=== PATIENT | female | born 1995 | race Caucasian/White ===

== ENCOUNTER 2021-04-15 16:53 | Emergency (ER) | payer OTHER, SELFPAY ==
[2021-04-15 17:12] VITALS: BP 132/92; PULSE 84; RESP 20; TEMP 36.3; O2SAT 98
--- NOTE | 2021-04-15 17:23 | ED.ANIMALBIT ---
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 Multiple small scratches and abrasions arms are currently being soaked MD complaint: animal bite Onset (ago): hour(s) Animal: cat Mechanism: bite Location - Extremities: Right: hand Related Data Home Medications Medication Instructions Recorded Confirmed Lo Loestrin Fe 04/15/21 Viibryd 04/15/21 Allergies Allergy/AdvReac Type Severity Reaction Status Date / Time azithromycin Allergy Hives Verified 04/15/21 17:17 Sulfa (Sulfonamide Allergy Hives Verified 04/15/21 17:17 Antibiotics) vancomycin Allergy Hives Verified 04/15/21 17:17 Review of Systems Review of Systems: CONSTITUTIONAL: Denies fever, chills, sweats. EYES: Denies visual changes, redness, discharge. ENT: Denies rhinorrhea, congestion, sore throat, otalgia. CARDIOVASCULAR: Denies chest pain, palpitations, edema. RESPIRATORY: Denies dyspnea, wheezing, cough GASTROINTESTINAL: Denies abdominal pain, nausea, vomiting, diarrhea. GENITOURINARY: Denies dysuria, hematuria, abnormal discharge SKIN: Denies rash or itching. NEUROLOGIC: Denies numbness, or focal weakness. PSYCHIATRIC: Denies anxiety or depression. Cat bite and primarily right hand and a couple scratches on left-patient works as a groomer in a pet salon PMF Past Medical History Medical History Anxiety Bipolar 1 disorder Family History Family History (Updated 04/15/21 @ 17:34 by Inga Graves CNP) Other Diabetes mellitus High cholesterol Hypertension Social History Social History (Updated 04/15/21 @ 17:34 by Inga Graves CNP) Smoking status: Never smoker Alcohol intake: current Comments At time of signature, I agree with nursing past medical, surgical, social and family history. There is no relevant family history pertinent to the presenting complaint. Exam Narrative: GENERAL: This is a well-nourished, well-developed patient, in mild distress. HEAD: normocephalic, atraumatic. EYES: Sclera clear/white. Vision is grossly intact. EARS: External ears normal, Hearing grossly intact. NOSE: External nose normal without nasal discharge, nares without redness, no rhinorrhea. THROAT: Mucous membranes moist, NECK: Neck supple, CARDIOVASCULAR: Regular rate and rhythm without murmurs, gallops, or rubs. RESPIRATORY: Clear to auscultation. Breath sounds equal bilaterally. No wheezes, rales, or rhonchi. GASTROINTESTINAL: Abdomen soft, SKIN: warm, intact with no suspicious lesions or rash, good texture and turgor.multiple small scratches and light bites from cat all over R hand/forearm, 1 about ,5cm, other ,25) NEURO: awake, alert, and oriented to person, place and time. There were no obvious focal neurologic abnormalities. Steady gait EXTREMITIES: Normal range of motion. BACK: Nontender without deformity Course Course Emergency Course: Patient here after getting cat Bite at pet [employer] where she works Had tetanus vaccine Hands cleaned and soaked, Steri-Strips applied to small scratch in the forefinger and thumb(.5 cm. less than .5 cm)-and wrapped with gauze roll- discussed care of skin/lacerations and started on Augmentin Vital Signs Vital signs: Vital Signs Temperature 97.3 F L 04/15/21 17:12 Pulse Rate 84 04/15/21 17:12 Respiratory Rate 20 04/15/21 17:12 Blood Pressure 132/92 H 04/15/21 17:12 Pulse Oximetry 98 04/15/21 17:12 Temperature 97.3 F L 04/15/21 17:12 Pulse Rate 84 04/15/21 17:12 Respiratory Rate 20 04/15/21 1
[2021-04-15] MEDS: TETANUS,DIPHTHERIA,AC PERTUSSIS ADULT (0.5 ML) BOOSTRIX IM (17:31)
== END 2021-04-15 18:03 | disposition home or self-care (01) ==
PROVIDERS: Emergency Provider Nurse Practitioner
DX: S61.451A Open bite of right hand, initial encounter (principal); S51.851A Open bite of right forearm, initial encounter; W55.01XA Bitten by cat, initial encounter; Z23 Encounter for immunization; F31.9 Bipolar disorder, unspecified
CPT/HCPCS: 90471; 90715; 99203; G0463

== ENCOUNTER 2024-03-27 11:29 | Emergency (ER) | payer OTHER, SELFPAY ==
--- NOTE | 2024-03-27 11:32 | ED.ANIMALBIT ---
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, was helping with surgery with a cap was not fully asleep Full range of motion, sensation intact, capillary refill under 2 seconds Related Data Patient tetanus UTD: Yes Home Medications Medication Instructions Recorded Confirmed aripiprazole 5 mg tablet 5 mg AC 03/27/24 03/27/24 Allergies Allergy/AdvReac Type Severity Reaction Status Date / Time azithromycin Allergy Hives Verified 03/27/24 11:50 Sulfa (Sulfonamide Allergy Hives Verified 03/27/24 11:50 Antibiotics) vancomycin Allergy Hives Verified 03/27/24 11:50 Review of Systems Review of Systems: All systems reviewed & are unremarkable except as noted in HPI and below Constitutional: Constitutional: Reports no additional constitutional complaints Eyes: Eyes: Reports no additional eye complaints ENT: Reports system reviewed and no additional complaints, except as documented Cardiovascular: Cardiovascular: Reports no additional cardiovascular complaints, Denies chest pain and Denies dyspnea Respiratory: Respiratory: Reports no additional respiratory complaints, Denies chest congestion, Denies cough and Denies dyspnea Gastrointestinal: Gastrointestinal: Reports no additional gastrointestinal complaints, Denies abdominal pain, Denies nausea and Denies vomiting Musculoskeletal: Musculoskeletal: Reports no additional musculoskeletal complaints Integumentary/Breasts: Skin/Breast: Reports as per HPI Neurologic: Reports system reviewed and no additional complaints, except as documented Psychiatric: Psychiatric: Reports no additional psychiatric complaints Allergic/Immunologic: Allergic/Immunologic: Reports no additional allergic/immunologic complaints [facility] Past Medical History Medical History Anxiety Bipolar 1 disorder Family History Family History Other Diabetes mellitus High cholesterol Hypertension Social History Social History Smoking status: Never smoker Alcohol intake: current Comments At the time of my signature, I reviewed and agree with the nursing past medical, surgical, social, and family history. There is no relevant family history pertinent to the patient complaint. Exam Const: General: cooperative, healthy appearing, comfortable, no acute distress, well developed, alert and well nourished Nutritional Appearance: well nourished Orientation/consciousness: patient oriented x3 Limitations: no limitations HENMT: Head: normal to inspection Ears: hearing grossly normal bilaterally and external ears normal Face/Nose/Sinus: Normal external nose present, Normal nares present, Normal nasal mucous membranes and turbinates present, normal facial exam and face symmetric Face and sinus: normal facial exam and face symmetric Eyes: General: appearance normal, both eyes and all related structures Alignment and Position: alignment normal Periorbital: periorbital findings normal Neck: Neck: normal visual inspection, full ROM, no lymphadenopathy and no meningeal signs Chest: Chest palpation & inspection: normal inspection of the chest Resp: Effort & Inspection: normal respiratory effort and able to speak in complete sentences Cardio: Rate: regular rate Skin: General skin exam: normal color and no rashes or lesions noted Lesions: no lesions Rashes: no rashes Trauma: no lacerations or abrasions Other: Puncture wound dista
[2024-03-27 11:41] VITALS: BP 113/72; PULSE 81; RESP 15; TEMP 36.4; O2SAT 100
== END 2024-03-27 12:08 | disposition home or self-care (01) ==
PROVIDERS: Emergency Provider Nurse Practitioner
DX: S61.233A Puncture wound without foreign body of left middle finger without damage to nail, initial encounter (principal); W55.01XA Bitten by cat, initial encounter; Y99.0 Civilian activity done for income or pay
CPT/HCPCS: 99203; G0463